=== PATIENT | female | born 1960 | race Caucasian/White ===

== ENCOUNTER → 2017-01-25 | Outpatient (CLI) | payer MEDICARE, OTHER ==
[2017-01-25] VITALS (12 sets, daily range): BP systolic 107–148; BP diastolic 67–97
[~2017-01-25] VITALS: Ht 157.5 cm; Wt 120.2 kg
[~2017-01-25] MED LIST: ALB0.5V IH; DOCU-238 PO; ESTR1TAB24 PO; FLUT12AE4 IH; IOHEXOL 240 MGI/ML 20 ML (OMNIPAQUE) VIAL IV ONE; LIDOCAINE 1% INJ 20 ML (XYLOCAINE) VIAL ONE; LISI-552 PO; ZINC50TA51 PO
--- OUTSIDE RECORDS SUMMARY | 2017-01-25 09:33 | XMS REPORT ---
Author Author Elvis Watson [facility] Address [address] [place], [place] [id number] Care Team Providers Care Learning Administrator Name Role Phone Nathan Watson PCP Street Unavailable Unavailable manus Unavailable Unavailable Allergies and Adverse Reactions Name Reaction Notes Demerol hypotension Plan of Treatment Planned Activity Comments Planned Date Planned Time Plan/Goal MRI LUMBAR SPINE W/O DYE 05/17/2016 12:00 AM Medications Active Name Start Date Estimated Completion Date SIG Comments Stool Softener 100 mg oral capsule take 1 capsule (100 mg) by oral route 2 times per day aspirin 81 mg oral tablet,delayed release (DR/EC) take 1 tablet (81 mg) by oral route once daily black cohosh root extract oral 135 mg 1 BID promethazine 25 mg oral tablet take 1 tablet (25 mg) by oral route every 6 hours as needed ondansetron 8 mg oral tablet,disintegrating dissolve 1 tablet by oral route prednisone 5 mg oral tablet lisinopril 20 mg oral tablet 03/31/2016 TAKE ONE TABLET BY MOUTH ONCE DAILY Dulera 200-5 mcg/actuation inhalation HFA aerosol inhaler 04/12/2016 inhale 2 puffs by inhalation route 2 times per day in the morning and evening cyclobenzaprine 10 mg oral tablet 04/13/2016 07/12/2016 take 1 tablet by oral route 3 times a day for 30 days Advair HFA 115-21 mcg/actuation inhalation HFA aerosol inhaler 04/18/201608/16 inhale 2 puffs by inhalation route 2 times per day in the morning and evening hydrocodone-acetaminophen 5-325 mg oral tablet 05/17/2016 06/16/2016 take 1 tablet by oral route daily for 30 days azithromycin 250 mg oral tablet 05/17/2016 2016 take 2 tablets (500 mg) by oral route once daily for 3 days Name Start Date Expiration Date SIG Comments amoxicillin 500 mg oral tablet 06/11/2015 06/21/2015 take 1 tablet (500 mg) by oral route every 12 hours for 10 days hydrochlorothiazide 25 mg oral tablet 09/06/2015 03/04/2016 take 1 tablet (25 mg) by oral route once daily lisinopril 20 mg oral tablet 09/06/2015 03/04/2016 take 1 tablet (20 mg) by oral route once daily for 90 days ProAir HFA 90 mcg/actuation inhalation HFA aerosol inhaler 10/20/20152015 inhale 2 puffs (180 mcg) by inhalation route every 4-6 hours as needed for 30 days Levaquin 500 mg oral tablet 11/05/2015 11/12/2015 take 1 tablet (500 mg) by oral route once daily for 7 days ipratropium-albuterol 0.5 mg-3 mg(2.5 mg base)/3 mL inhalation solution for nebulization 11/05/2015 12/03/2015 inhale 3 milliliters by nebulization route 4 times per day for 7 days theophylline 200 mg oral tablet extended release 12 hr 11/05/2015 02/03/2016 take 1 tablet (200 mg) by oral route every 12 hours for 30 days prednisone 20 mg oral tablet 11/09/2015 11/16/2015 take 1 tablet (20 mg) by oral route 2 times per day for 7 days promethazine-codeine 6.25-10 mg/5 mL oral syrup 11/09/2015 11/14/2015 take 5 milliliters by oral route every 6 hours as needed, not to exceed 30 mL in 24 hours for 5 days amoxicillin 500 mg oral capsule 12/01/2015 12/11/2015 take 1 capsule (500 mg) by oral route every 8 hours for 10 days polymyxin B sulf-trimethoprim 10,000 unit- 1 mg/mL ophthalmic drops 12/01/2015 12/08/2015 instill 2 drops into affected eye(s) by ophthalmic route every 6 hours for 7 days diclofenac potassium 50 mg oral tablet 02/09/2016 02/16/2016 take 1 tablet ( 50 mg) by oral route 3 times per day for 7 days Brisdelle 7.5 mg oral capsule 02/09/2016 05/09/2016 take 1 capsule (7.5 mg) by oral route once daily at bedtime for 30 days paroxetine HCl 10 mg oral tablet 02/09/2016 05/09/2016 take 1 tablet by oral route once a day (at bedtime) for 30 days Problem List Description Status Onset arthritis Active Asthma Active Bronchitis Active Cancer Active 2011 Colon polyps Active Vaginal cancer Active 2014 Vital Signs Date Time BP-Sys(mm[Hg] BP-Dayana(mm[Hg]) HR(bpm) RR(rpm) Temp WT HT HC BMI BSA BMI Percentile O2 Sat(%) 05/17/2016 10:54:00 AM 130 mmHg 78 mmHg 88 bpm 20 rpm 98.6 F 251.375 lbs 61 in 47.50 kg/m2 2.22 m2 99 % 02/09/2016 2:23:00 PM 121 mmHg 76 mmHg 89 bpm 20 rpm 98.1 F 260.6 lbs 98 % 01/12/2016 10:07:00 AM 122 mmHg 82 mmHg 90 bpm 16 rpm 98.7 F 260 lbs 61 in 49.13 kg/m2 2.25 m2 100 % 12/01/2015 10:22:00 AM 130 mmHg 80 mmHg 111 bpm 18 rpm 99.1 F 258.125 lbs 61 in 48.7718 kg/m 2.2448 m 99 % 11/09/2015 9:01:00 AM 106 mmHg 58 mmHg 95 bpm 99.1 F 259 lbs 61 in 48.9371 kg/m 2.25 m2 100 % 11/05/2015 9:40:00 AM 110 mmHg 58 mmHg 102 bpm 18 rpm 99.7 F 258.125 lbs 99 % 10/20/2015 9:33:00 AM 118 mmHg 70 mmHg 86 bpm 20 rpm 98 F 99 % 09/06/2015 9:40:00 AM 130 mmHg 90 mmHg 89 bpm 99.1 F 251.375 lbs 61 in 47.50 kg/m2 2.2153 m 98 % 06/11/2015 12:10:00 PM 124 mmHg 70 mmHg 83 bpm 99.4 F 255 lbs 61 in 48.1813 kg/m 2.23 m2 97 % Social History Name Description Comments Tobacco Never smoker Alcohol Never Denies illicit substance abuse History of Procedures Date Ordered Description Order Status 09/06/2015 12:00 AM INFLUENZA VAC 4 VALENT PRSRV FREE 3 YRS PLUS IM Reviewed 11/05/2015 12:00 AM TTE W/DOPPLER COMPLETE Returned 11/05/2015 12:00 AM ELECTROCARDIOGRAM COMPLETE Returned 11/05/2015 12:00 AM CHEST X-RAY 2VW FRONTAL&LATL Returned 12/01/2015 12:00 AM CULTURE OTHR SPECIMN AEROBIC Returned 01/12/2016 12:00 AM COMPREHEN METABOLIC PANEL Returned Results Summary Data and Description Results 01/12/2016 2:54 PM GLUCOSE 111.0 mg/dLSODIUM 140.0 mmol/LPOTASSIUM 4.40 mmol/ LCHLORIDE 106.0 mmol/LCO2 24.0 mmol/LBUN 16.0 mg/dLCREATININE 0.70 mg/dLSGOT/ AST 21.0 IU/LSGPT/ALT 25.0 IU/LALK PHOS 125.0 IU/LTOTAL PROTEIN 6.40 g/ dLALBUMIN 4.10 g/dLTOTAL BILI 0.30 mg/dLCALCIUM 9.40 mg/dLeGFR >60 mL/min/1.73m History Of Immunizations Name Date Admin Mfg Name Mfg Code Trade Name Lot# Route Inj Vis Given Vis Pub CVX Influenza 09/06/2015 sanofi pasteur PMC Fluzone [id number] Intramuscular Right Deltoid 09/06/2015 07/02/2015 141 History of Past Illness Name Date of Onset Comments arthritis Asthma Bronchitis Cancer 2011 Cervical cancer , treated with chemo and bladder surgery Dizziness Vaginal cancer 2014 Dr. Quiles and Bill are oncologist who are dealing with her vaginal cancer Screening for Colon Cancer nov 2013 found polyps, due every 3 years Colon polyps Screening Mammogram fall 2013 negative PNEUMONIA VACCINE RECIEVED 12/2014 PCV 13 -01/05/15 Sinusitis, Acute Jun 11 2015 12:25PM Pedal edema Sep 06 2015 9:45AM HTN (hypertension) Sep 06 2015 9:45AM Essential hypertension Oct 20 2015 9:40AM Mild persistent asthma without complication Oct 20 2015 9:40AM Cervical cancer Stable Oct 20 2015 9:40AM Acute sinusitis Nov 05 2015 9:43AM Palpitation Nov 05 2015 9:43AM Heart murmur Nov 05 2015 9:43AM Bronchitis, Acute Nov 05 2015 9:43AM Asthma exacerbation Nov 05 2015 9:43AM Asthma exacerbation Nov 09 2015 9:04AM Muscle spasm of back Nov 09 2015 9:04AM Acute bacterial conjunctivitis of both eyes Dec 01 2015 10:25AM Acute recurrent maxillary sinusitis Dec 01 2015 10:25AM Morbid obesity due to excess calories Jan 12 2016 10:10AM Bilateral low back pain with right-sided sciatica Jan 12 2016 10:10AM Hot flashes Jan 12 2016 10:10AM Abdominal wall hernia Jan 12 2016 10:10AM Forearm joint pain, right Feb 09 2016 2:26PM Lumbar disc herniation, L2-3 May 17 2016 10:58AM Acute bacterial sinusitis May 17 2016 10:58AM Payers Insurance Name Company Name Plan Name Plan Number Policy Number Policy Group Number Start Date Medicare Part B [employer] [place] [id number] Thursday, 2015 [employer] Medicare Supplement [employer] Medicare Supplement [id number] Thursday, 2015 History of Encounters Visit Date Visit Type Provider 05/17/[address] Elvis Watson MD 02/09/2016 Office visit Farrah Amaya APRN 01/12/[address] Elvis Watson MD 12/01/2015 Office visit Farrah Amaya APRN 11/09/2015 Office visit Shelly Campa APRN 11/05/2015 Office visit Drea Butler MD 11/05/2015 Office visit Shelly Campa APRN 10/20/[address] Elvis Watson MD 09/06/2015 Office visit Shelly Campa APRN 06/11/2015 Office visit Shelly Campa APRN
[2017-01-25 10:10] LABS: MEAN PLATELET VOLUME 10.1 FL (7.4-10.4); RED BLOOD COUNT 4.7 10^6/uL (4.35-5.85); RED CELL DISTRIBUTION WIDTH 15.2 % (10.0-14.5); WHITE BLOOD COUNT 9.3 10^3/uL (4.3-11.0)
[2017-01-25 10:29] LABS: PROTHROMBIN TIME PATIENT 12.7 SEC (12.2-14.7)
--- NOTE | 2017-01-25 11:33 | Discharge Instructions ---
Discharge Instructions Home Medicaitons Changes Hold any current blood thinner home medications for [24 hours]. RAYRAY GARCIA MD Jan 25, 2017 11:33
--- NOTE | 2017-01-25 12:19 | Diagnostic Imaging Report ---
EXAMINATION: Fluoroscopic guided lumbar puncture with intrathecal contrast injection and myelogram performed. INDICATION: Back pain. FLUOROSCOPY TIME: 40 seconds CONSENT: Informed consent was obtained from the patient. The risks, benefits, potential complications and alternatives were reviewed and all questions answered to the patient's satisfaction. PROCEDURE: After sterile preparation and draping, 1% lidocaine was utilized for local anesthesia. Under fluoroscopic guidance, a 22-gauge spinal needle is advanced into the spinal canal at the level of L5/S1. Clear CSF is obtained. Under fluoroscopic visualization, 12 cc of intrathecal Omnipaque-240 is administered into the thecal sac. The patient tolerated the procedure well with no immediate complications. FINDINGS: Myelogram images demonstrate opacification of the thecal sac. There is suggestion of spinal calcinosis at L2/3 and fusion changes at the facet joints at L4/5. IMPRESSION: Successful fluoroscopic guided intrathecal contrast injection with myelogram obtained and a lumbar CT myelogram to follow. Dictated by: Dictated on workstation # [id number]
--- NOTE | 2017-01-25 12:20 | Diagnostic Imaging Report ---
PROCEDURE: CT lumbar spine with contrast. TECHNIQUE: Multiple contiguous axial images were obtained through the lumbar spine after the intrathecal administration of contrast. Sagittal and coronal reformations were then performed. INDICATION: Back pain. FINDINGS: There is satisfactory alignment of the posterior spinal line. There is prominent lordotic curvature in the lumbar spine. The vertebral body heights are preserved. There is evidence of prior discectomy at L3/L4 and L4/L5. There is suggestion of osseous bridging along the periphery of the disc space on both sides. There is also posterior fusion around the facet joints L3/L4 and L4/L5 bilaterally. No anterior plates or posterior fusion hardware is present at this time. There is good opacification of the thecal sac with unremarkable appearance of the cauda equina and conus medullaris. No compression fracture. No significant disc height loss is seen at any level. T12/L1: There is a diffuse disc bulge and vacuum disc at this level without significant spinal canal or foraminal stenosis. L1/L2: There is a diffuse disc bulge and mild facet and ligamentous hypertrophy without significant central canal or lateral recess stenosis. There is no foraminal narrowing. L2/L3: There is a diffuse disc bulge and moderate facet arthropathy. This is associated with mild to moderate central canal stenosis reducing the AP dimension of the canal to 8.5 mm and resulting in bilateral mild lateral recess stenosis. The foramina demonstrate moderate stenosis bilaterally. L3/L4: There is no significant disc herniation. There is posterior fusion and anterior fusion at this level with no remaining osteophytes. The spinal canal is patent. The neuroforamina are patent. L4/L5: Posterior and anterior fusion changes seen with suggestion of prior right hemilaminectomy. There is no spinal canal stenosis. The foramina are patent. L5/S1: No disc herniation. There is mild to moderate facet arthropathy without central canal or lateral recess stenosis. The foramina are patent. IMPRESSION: There is osseous fusion between the vertebral bodies and around the facet joints at L3/L4 and L4/L5 levels. There is mild to moderate central canal stenosis at L2/L3, and there is bilateral foraminal stenosis at L2/L3 and L1/L2 levels. Dictated by: Dictated on workstation # [id number]
== END ==
LOC: RAD 09:21
PROVIDERS: ATTEND Orthopaedic Surgery Orthopaedic Surgery of the Spine
DX: M48.06 Spinal stenosis, lumbar region (principal)
CPT/HCPCS: 36415; 62284; 72132; 72265; 77002; 85027; 85610; 85730